=== PATIENT | male | born 1985 | race Caucasian/White ===

== ENCOUNTER 2019-07-24 20:03 | Emergency (ER) | payer SELFPAY ==
[2019-07-24 20:04] VITALS: BP 125/77; PULSE 96; RESP 18; TEMP 36.6; O2SAT 96; BMI 25.7
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
[2019-07-24 20:23] LABS: Basophils # 0.1 10^3/uL (0.0-0.1); Basophils % 1.1 %; Eosinophils # 0.2 10^3/uL (0.0-0.8); Eosinophils % 2.9 %; Hematocrit 44.9 % (42.0-52.0); Hemoglobin 15.1 g/dL (11.7-16.6); Lymphocytes # 3.2 10^3/uL (0.8-4.8); Lymphocytes % 39.2 %; Mean Corpuscular HGB Conc 33.6 g/dL (30.0-36.0); Mean Corpuscular Hemoglobin 29.8 pg (28.0-34.0); Mean Corpuscular Volume 88.6 fL (80-94); Mean Platelet Volume 9.6 fL (7.4-10.4); Monocytes # 0.6 10^3/uL (0.2-0.9); Monocytes % 7.5 %; Neutrophils % 48.9 %; Nucleated Red Blood Cells % 0 %; Platelet Count 333 10^3/cmm (130-400); Red Blood Count 5.07 10^6/uL (4.1-5.3); Red Cell Distribution Width 12.2 % (12.1-15.1); White Blood Count 8.2 10^3/uL (4.0-10.0)
[2019-07-24 20:39] LABS: Alanine Aminotransferase 16 U/L (0-41); Albumin Level 5.1 g/dL (3.5-5.2); Alcohol Level 148 mg/dL (0-10); Alkaline Phosphatase 58 IU/L (40-130); Anion Gap 16.9 (5-19); Aspartate Amino Transferase 23 U/L (0-40); Blood Urea Nitrogen 10 mg/dL (6-20); Calcium 9.1 mg/dL (8.5-10.5); Carbon Dioxide 24 mmol/L (22-29); Chloride 103 mmol/L (98-107); Creatinine Clr Calc Pharmacy 115.6562; Globulin 2.3 g/dL (1.3-4.6); Glomerular Filtration Rate 77.1 mL/min (90-130); Glucose 102 mg/dL (65-115); Osmolality Calculated 286 mOsm/kg (285-295); Potassium 3.9 mmol/L (3.5-5.1); Sodium 140 mmol/L (136-145); Total Protein 7.4 g/dL (6.6-8.7)
[2019-07-24 20:43] VITALS: BP 119/77; PULSE 87; RESP 16; O2SAT 97
[2019-07-24 20:45] LABS: Acetaminophen < 5.0 ug/mL (10-30); Salicylate < 0.3 mg/dL (3-10)
[2019-07-24 21:23] VITALS: BP 103/61; PULSE 80; RESP 16; O2SAT 96
[2019-07-24 21:26] LABS: Amphetamines Screen Urine Negative (Negative); Barbiturates Screen Urine Negative (Negative); Benzodiazepines Screen Urine Negative (Negative); Cocaine Screen Urine Negative (Negative); Opiate Screen Urine Negative (Negative); PCP Screen Urine Negative (Negative); THC Screen Urine Negative (Negative)
== END 2019-07-24 21:30 | disposition home or self-care (01) ==
LOC: ER 20:58
PROVIDERS: Emergency Provider Emergency Medicine
DX: F10.920 Alcohol use, unspecified with intoxication, uncomplicated (principal); F17.210 Nicotine dependence, cigarettes, uncomplicated
CPT/HCPCS: 12345; 80053; 80306; 80307; 85025; 99284

== ENCOUNTER → 2019-10-25 17:57 | Outpatient (BNVA) | payer OTHER, SELFPAY | PROVIDERS: Visit Provider Emergency Medicine | DX: Z20.828 Contact with and (suspected) exposure to other viral communicable diseases (principal) | CPT/HCPCS: 87635 ==

== ENCOUNTER 2020-02-07 20:51 | Emergency (ER) | payer SELFPAY ==
[2020-02-07 20:59] VITALS: BP 125/78; PULSE 60; RESP 20; O2SAT 98; BMI 25.0
[2020-02-07 21:18] VITALS: BP 125/78; PULSE 62; RESP 17; O2SAT 98
[2020-02-07 21:37] VITALS: BP 125/78; PULSE 68; RESP 17; O2SAT 97
--- NOTE | 2020-02-07 21:40 | ECG_ITS ---
[facility] Test Date: 2020-02-07 Pat Name: Bienvenido Brandt Department: Room: Gender: Male Hospice Clinical Manager: : 1985 Requested By: Kathryn Espinal I Order Number: [id number] Elvira MD: Nupur Pritchard M.D. Measurements Intervals Panther Rate: 58 P: 53 UT: 206 QRS: 56 QRSD: 97 T: 34 QT: 383 QTc: 379 Interpretive Statements SINUS BRADYCARDIA No previous ECG available for comparison Electronically Signed On 02-08-2020 20:31:49 GLASS GLAZIER by Nupur Pritchard M.D. [id number]
[2020-02-07] MEDS: lidocaine 2% viscous 15 ML, aluminum-mag hydrox-simethicon 30 ML, sucralfate oral liq 1 GM PO (21:55)
[2020-02-07] MEDS: famotidine 20 mg/2 mL INJ 40 MG IVP (21:56)
--- NOTE | 2020-02-07 22:00 | W.ED.CHESTPA ---
HPI - Chest Pain General: Chief Complaint: Chest Pain Stated Complaint: cp Time Seen by Provider: 02/07/20 21:10 Source: patient and family Mode of arrival: ambulatory Limitations: no limitations History of Present Illness: HPI narrative: 34-year-old male who has been having retrosternal/epigastric pain for about a month. He attributed it to heartburn but he said Tums have not helped. Symptoms are usually worse after eating. He used to smoke but has quit smoking then started chewing tobacco but he has quit that to because he thought that was contributing to his symptoms. He drinks a lot of Dr. Painting, drinks alcohol fairly frequently also. Because of the persistence of his symptoms his girlfriend brought him in for evaluation. MD complaint: chest pain Onset (ago): month(s) (1) Timing of current episode: episodic Prior episodes: Yes Onset: after eating Pain location: substernal and epigastric Pain radiation: none Severity: similar to previous episodes Quality: burning Relieving factors: nothing Exacerbating factors: eating Associated symptoms: Reports abdominal pain; Deny diaphoresis, dyspnea, fever(s), leg edema, nausea, palpitations, sense of impending doom, syncope or vomiting Treatment prior to arrival: none Review of Systems General: Reports: 10 or more systems reviewed and unremarkable except in HPI and below Const: Denies: fever(s) or diaphoresis Eyes: Denies: change in vision or blurry vision ENMT: Denies: throat pain, enlarged tonsils, odynophagia, hoarseness, mouth pain or swelling of lips/tongue Card: Denies: palpitations or syncope Resp: Denies: dyspnea GI: Reports: abdominal pain; Denies: nausea or vomiting : Denies: flank pain, dysuria, urinary frequency, urinary urgency or urinary hesitancy Musc: Denies: neck pain, back pain or extremity swelling Skin/Breast: Denies: rash, pruritus or erythema Neuro: Denies: headache(s), numbness in extremities or weakness in extremities Endo: Denies: polyuria, polydipsia or tired all the time PFSH ED PFSH: Social History Smoking and tobacco status: current every day smoker cigarettes Packs smoked per day: 1.5 Alcohol intake: current Alcohol intake frequency: few times a week History of recent travel: No Sexually active: Yes Current gender identity: Male Physical Exam Const: COMMON NORMALS: no acute distress, average body habitus, patient oriented x3, no limitations, healthy appearing, alert and well nourished Neck/C-Spine: COMMON NORMALS: no meningeal signs and no JVD Chest: COMMONS NORMALS: normal inspection of the chest and normal palpation of entire chest wall Resp: COMMON NORMALS: normal respiratory effort, No retractions, No use of accessory muscles, clear to auscultation bilaterally and percussion normal AUSCULTATION: clear to auscultation bilaterally PERCUSSION: percussion normal Cardio: COMMON NORMALS: no JVD, regular rate, regular rhythm, S1 normal heart sound present, S2 normal heart sound present, No gallops present (Cardio), No clicks present (Cardio), No murmurs present (Cardio), No rub (Cardio) and Peripheral pulses 2+ throughout RATE: regular rate RHYTHM: regular rhythm HEART SOUNDS: S1 normal heart sound present and S2 normal heart sound present PERIPHERAL PULSES: Peripheral pulses 2+ throughout GI: COMMON NORMALS: Normal to inspection, nondistended, normoactive bowel sounds present, Soft to palpation, No hepatosplenomegaly present, no masses and no bruits PALPATION: Yes Soft to palpation, Yes Tenderness to palpation present (GI) (epigastric) and Yes No hepatosplenomegaly present Extremity: COMMON NORMALS: normal to inspection, full ROM, capillary refill normal, no calf tenderness and no pedal edema Neuro: COMMON NORMALS: patient oriented x3 SENSORIUM/ORIENTATION: Yes alert MENINGEAL SIGNS: Yes no meningeal signs Skin: COMMON NORMALS: no rashes or lesions noted, no wounds, turgor normal, no jaundice, no petechiae and no mottling GENERAL SKIN EXAM: no rashes or lesions noted and turgor normal Course Reevaluation(s): Reevaluation #1: Discussed lab and imaging findings with him. Negative for acute findings. He said he obtained some relief with a GI cocktail and a Pepcid. I explained to him that he likely has GERD and I discussed his diet options with him. He is also to reduce his amount of soda intake as well as fast food. We will discharge him home with a prescription for a PPI and sucralfate. He voiced understanding and is in agreement with the plan. Time: 23:01 Vital Signs: Vital signs: Vital Signs Pulse Rate 70 02/07/20 23:15 Respiratory Rate 16 02/07/20 23:15 Blood Pressure 126/76 02/07/20 23:15 Pulse Oximetry 97 02/07/20 23:15 MDM - Chest Pain MDM Narrative: Medical decision making narrative: 34 year male who presents to the emergency department with long standing chest pain that is consistent with GERD. Evaluation in the emergency department is unremarkable and he obtained relief following the GI cocktail on intravenous famotidine. He is discharged home with a prescription for sucralfate and a PPI. The patient drinks a lot of soda, used to smoke cigarettes and chew tobacco or he no longer does any of those to. He also eats a lot of fast food. He is advised to cut down on his fast food and soda intake. He is to follow-up with his primary care provider Medical Records: Attestation: I reviewed the patient's medical records. Lab Data: Attestation: I reviewed the patient's lab results. Labs: Lab Results 02/07/20 02/07/20 02/07/20 Range/Units 21:08 21:08 21:08 WBC 9.7 (4.0-10.0) 10^3/ uL RBC 4.47 (4.1-5.3) 10^6/u L Hgb 13.3 (11.7-16.6) g/dL Hct 39.4 L (42.0-52.0) % MCV 88.1 (80-94) fL MCH 29.8 (28.0-34.0) pg MCHC 33.8 (30.0-36.0) g/dL RDW 11.9 L (12.1-15.1) % Plt Count 327 (130-400) 10^3/c mm MPV 10.3 (7.4-10.4) fL Neut % (Auto) 56.2 % Lymph % (Auto) 30.4 % [place] % (Auto) 9.2 % Eos % (Auto) 2.9 % Baso % (Auto) 0.9 % Neut # (Auto) 5.42 (1.8-7.7) 10^3/u L Lymph # (Auto) 2.9 (0.8-4.8) 10^3/u L [place] # (Auto) 0.9 (0.2-0.9) 10^3/u L Eos # (Auto) 0.3 (0.0-0.8) 10^3/u L Baso # (Auto) 0.1 (0.0-0.1) 10^3/u L Nucleated RBC % (a uto) 0 % Nucleated RBCs # 0.0 /100WBC Sodium 142 (136-145) mmol/L Potassium 4.0 (3.5-5.1) mmol/L Chloride 106 (98-107) mmol/L Carbon Dioxide 26 (22-29) mmol/L Anion Gap 14.0 (5-19) BUN 18 (6-20) mg/dL Creatinine 1.0 (0.7-1.2) mg/dL GFR Calculation 86.1 L (90-130) mL/min Glucose 98 (65-115) mg/dL Calculated Osmolal ity 296 H (285-295) mOsm/k g Calcium 9.6 (8.5-10.5) mg/dL Total Bilirubin 0.6 (0.15-1.2) mg/dL AST 15 (0-40) U/L ALT 14 (0-41) U/L Alkaline Phosphata se 67 (40-130) IU/L Creatine Kinase 219 (39-308) U/L Troponin T Baselin e 6 (0-15) ng/L NT-Pro-B Natriuret Pep 26 (0-125) pg/mL Total Protein 6.3 L (6.6-8.7) g/dL Albumin 4.1 (3.5-5.2) g/dL Globulin 2.2 (1.3-4.6) g/dL Lipase 14 (13-60) U/L Imaging Data^: CXR: Attestation: I personally reviewed and interpreted this imaging study as follows: My impression: No acute findings EKG Data^: EKG 1: Attestation: I personally reviewed and interpreted this EKG as follows: EKG interpretation date: 02/07/20 EKG interpretation time: 21:01 Prior EKG tracings: not available for review Interpretation: Sinus bradycardia. Heart rate [address] changes. Normal axis. Discharge Plan Discharge Patient Disposition: Home Clinical Impression: Chest pain due to GERD Condition: Stable Prescriptions: New omeprazole 40 mg capsule,delayed release(DR/EC) 40 mg PO DAILY 28 Days Qty: 30 RF: 0 sucralfate 1 gram tablet 1 g PO TID 28 Days Qty: 84 RF: 0 Discharge Orders: Discharge ED (Routine); Ordered 02/07/20 Ordered By: Kathryn Espinal Discharge Diet: As Directed Discharge Activity: Resume usual activity Patient Instructions: Diet for Ulcers and Gastritis (ED), Gastroesophageal Reflux Disease (ED) Activity Restrictions/Additional Instructions: Return for any new or worsening symptoms. Follow-up with your primary care provider within 3 days. Avoid sodas, spicy foods, acidic foods, greasy foods as these may worsen your symptoms. Referred to the handout given to you on the appropriate diet to help with your condition. Coding Level of Care Code ED Early Childhood Education Instructor for Jayy Fwd Exam Comprehensive
[2020-02-07 22:07] VITALS: BP 125/78; PULSE 65; RESP 18; O2SAT 98
--- NOTE | 2020-02-07 22:10 | XRR_ITS ---
PROCEDURE INFORMATION: Exam: XR Chest, 2 Views Exam date and time: 02/07/2020 10:20 PM Age: 34 years old Clinical indication: Chest pain; Type not specified; Additional info: Cp x 1 month TECHNIQUE: Imaging protocol: XR of the chest Views: 2 views. COMPARISON: No relevant prior studies available. FINDINGS: Lungs: Unremarkable. No consolidation. Pleural space: Unremarkable. No pleural effusion. No pneumothorax. Heart/Mediastinum: Unremarkable. No cardiomegaly. Bones/joints: Unremarkable. XR/XR chest 2V* [id number] IMPRESSION: No acute findings.
[2020-02-07 22:34] LABS: Basophils # 0.1 10^3/uL (0.0-0.1); Basophils % 0.9 %; Eosinophils # 0.3 10^3/uL (0.0-0.8); Eosinophils % 2.9 %; Hematocrit 39.4 % (42.0-52.0); Hemoglobin 13.3 g/dL (11.7-16.6); Lymphocytes # 2.9 10^3/uL (0.8-4.8); Lymphocytes % 30.4 %; Mean Corpuscular HGB Conc 33.8 g/dL (30.0-36.0); Mean Corpuscular Hemoglobin 29.8 pg (28.0-34.0); Mean Corpuscular Volume 88.1 fL (80-94); Mean Platelet Volume 10.3 fL (7.4-10.4); Monocytes # 0.9 10^3/uL (0.2-0.9); Monocytes % 9.2 %; Neutrophils # 5.42 10^3/uL (1.8-7.7); Neutrophils % 56.2 %; Nucleated Red Blood Cells % 0 %; Platelet Count 327 10^3/cmm (130-400); Red Blood Count 4.47 10^6/uL (4.1-5.3); Red Cell Distribution Width 11.9 % (12.1-15.1); White Blood Count 9.7 10^3/uL (4.0-10.0)
[2020-02-07 22:45] LABS: Troponin(5th) Baseline 6 ng/L (0-15)
[2020-02-07 22:51] LABS: Alanine Aminotransferase 14 U/L (0-41); Albumin Level 4.1 g/dL (3.5-5.2); Alkaline Phosphatase 67 IU/L (40-130); Aspartate Amino Transferase 15 U/L (0-40); Blood Urea Nitrogen 18 mg/dL (6-20); Calcium 9.6 mg/dL (8.5-10.5); Carbon Dioxide 26 mmol/L (22-29); Chloride 106 mmol/L (98-107); Creatine Phosphokinase 219 U/L (39-308); Creatinine Clr Calc Pharmacy 129.2726; Globulin 2.2 g/dL (1.3-4.6); Glomerular Filtration Rate 86.1 mL/min (90-130); Glucose 98 mg/dL (65-115); Lipase 14 U/L (13-60); NT Pro B Type Natriuretic Pept 26 pg/mL (0-125); Osmolality Calculated 296 mOsm/kg (285-295); Sodium 142 mmol/L (136-145); Total Bilirubin 0.6 mg/dL (0.15-1.2); Total Protein 6.3 g/dL (6.6-8.7)
[2020-02-07 23:15] VITALS: BP 126/76; PULSE 70; RESP 16; O2SAT 97
== END 2020-02-07 23:16 | disposition home or self-care (01) ==
PROVIDERS: Emergency Provider Family Medicine
DX: K21.9 Gastro-esophageal reflux disease without esophagitis (principal); F17.210 Nicotine dependence, cigarettes, uncomplicated
CPT/HCPCS: 12345; 71046; 80053; 82550; 83690; 83880; 84484; 85025; 93005; 96374; 99283; J3490

== ENCOUNTER 2022-05-04 17:22 | Emergency (ER) | payer OTHER, SELFPAY ==
[2022-05-04 17:39] VITALS: BP 120/70; PULSE 80; RESP 16; O2SAT 100
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
[2022-05-04] MEDS: ondansetron 4 MG Tablet PO (18:05)
[2022-05-04] MEDS: HYDROcodone-acetaminophen 10-325 mg Tablet 1 TAB PO (18:05)
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
--- NOTE | 2022-05-07 09:31 | DCPLANNER ---
Addendum entered by Christina Covarrubias 05/09/22 08:41: Patient had a follow up appointment scheduled with ortho - patient did attend appointment Addendum entered by Christina Covarrubias 05/08/22 08:18: Patient has a follow up appointment scheduled for Sunday, May 08, 2022 at 10:[address] Leon at ortho. Clinic will call patient with appointment information. Original Note: human resources district manager had message to schedule a follow up appointment for patient with ortho. human resources district manager sent patients information to the front office staff at ortho. Patients information will be printed and reviewed. Clinic will call patient with appointment information.
--- NOTE | 2022-05-08 14:07 | DCPLANNER ---
Addendum entered by Christina Covarrubias 05/09/22 14:51: acting manager called patient due to no primary care physician - no answer at this time Original Note: acting manager called patient due to no primary care physician - no answer at this time
== END 2022-05-04 19:11 | disposition home or self-care (01) ==
PROVIDERS: Emergency Provider Nurse Practitioner Family
DX: S42.021A Displaced fracture of shaft of right clavicle, initial encounter for closed fracture (principal); F17.210 Nicotine dependence, cigarettes, uncomplicated; V58.5XXA Driver of pick-up truck or van injured in noncollision transport accident in traffic accident, initial encounter
CPT/HCPCS: 71045; 73000; 73030; 99283; Q0162

== ENCOUNTER → 2022-05-22 11:15 | Outpatient (BNVA) | payer OTHER, SELFPAY | PROVIDERS: Visit Provider Orthopaedic Surgery | DX: S42.002D Fracture of unspecified part of left clavicle, subsequent encounter for fracture with routine healing (principal); X58.XXXD Exposure to other specified factors, subsequent encounter | CPT/HCPCS: 73000 ==

== ENCOUNTER → 2022-06-21 10:13 | Outpatient (BNVA) | payer OTHER, SELFPAY | PROVIDERS: Visit Provider Orthopaedic Surgery | DX: S42.002D Fracture of unspecified part of left clavicle, subsequent encounter for fracture with routine healing (principal); X58.XXXD Exposure to other specified factors, subsequent encounter | CPT/HCPCS: 73000 ==

== ENCOUNTER → 2024-04-24 08:49 | Outpatient (BNVA) | payer OTHER, SELFPAY | PROVIDERS: Visit Provider Orthopaedic Surgery | DX: M25.511 Pain in right shoulder (principal); G89.29 Other chronic pain; S46.011A Strain of muscle(s) and tendon(s) of the rotator cuff of right shoulder, initial encounter; X58.XXXA Exposure to other specified factors, initial encounter | CPT/HCPCS: 73030 ==